=== PATIENT | male | born 1955 | race Caucasian/White ===

== ENCOUNTER 2017-09-11 18:20 | Observation (INO) | payer BC ==
--- NOTE | 2017-09-11 18:29 | EDM.PDOC ---
ED HPI GENERAL MEDICAL PROBLEM - General Stated Complaint: PAIN IN RIGHT SIDE Time Seen by Provider: 09/11/17 18:20 Source of Information: Reports: Patient, Family - Related Data Allergies Allergy/AdvReac Type Severity Reaction Status Date / Time No Known Allergies Allergy Verified 01/12/14 09:57 Home Meds: Home Meds Diltiazem HCl [Diltiazem HCl] 1 tab PO DAILY 01/12/14 [History] Hydrocodone/Acetaminophen [[place] 5-325 Tablet] 1 - 2 each PO Q6HR PRN #30 tablet 01/12/14 [Rx] Multivitamin [Multivitamins] 1 cap PO 01/12/14 [History] Tamsulosin [Tamsulosin 24 Hr] 0.4 mg PO DAILY #10 cap.er 01/12/14 [Rx] Past Medical History - Past Health History Medical/Surgical History: Denies Medical/Surgical History Social & Family History - Alcohol Use Days Per Week of Alcohol Use: 0 - Recreational Drug Use Recreational Drug Use: No Course - Vital Signs Text/Narrative:: Impression: R flank pain Pt was signed out to Dr. Oseguera at 7 pm due to shift changes pending labs, imaging - Orders/Labs/Meds Orders: Active Orders 24 hr Category Date Time Status Abdomen Pelvis wo Cont [CT] Stat Exams 09/11/17 18:26 Ordered BASIC METABOLIC PANEL,BMP [CHEM] Stat Lab 09/11/17 18:26 Ordered CBC WITH AUTO DIFF [HEME] Stat Lab 09/11/17 18:26 Ordered UA W/MICROSCOPIC [URIN] Stat Lab 09/11/17 18:26 Uncollected Departure - Discharge Information Referrals: Gonzalez Camara MD [Primary Care Provider] - - My Orders Last 24 Hours: My Active Orders 09/11/17 18:26 Abdomen Pelvis wo Cont [CT] Stat BASIC METABOLIC PANEL,BMP [CHEM] Stat CBC WITH AUTO DIFF [HEME] Stat UA W/MICROSCOPIC [URIN] Stat - Assessment/Plan Last 24 Hours: My Active Orders 09/11/17 18:26 Abdomen Pelvis wo Cont [CT] Stat BASIC METABOLIC PANEL,BMP [CHEM] Stat CBC WITH AUTO DIFF [HEME] Stat UA W/MICROSCOPIC [URIN] Stat
[2017-09-11] MEDS ORDERED: Ketorolac 30 MG/ML SDV IVPUSH ONE (18:33)
[2017-09-11] MEDS ORDERED: Sodium Chloride 0.9% 10 ML Syringe FLUSH PRN (18:39)
[2017-09-11] MEDS ORDERED: Sodium Chloride 0.9% 1,000 ML IV SCH (19:15)
[2017-09-11] MEDS ORDERED: Ondansetron 4 MG/2 ML SDV IV PRN (20:19)
[2017-09-11] MEDS ORDERED: Tamsulosin 0.4 MG Cap.ER PO ONE (20:19)
[2017-09-11] MEDS ORDERED: Ketorolac 30 MG/ML SDV IVPUSH SCH (20:30)
[2017-09-11] MEDS: Sodium Chloride 0.9% 1,000 ML IV SCH (20:40)
[2017-09-11] MEDS ORDERED: Diltiazem IR 30 MG Tab PO SCH (21:00)
[2017-09-12] MEDS: Ketorolac 30 MG/ML SDV IVPUSH SCH ×3 (01:45→13:04)
[2017-09-12] MEDS: Sodium Chloride 0.9% 1,000 ML IV SCH ×2 (04:40→12:13)
[2017-09-12] MEDS: Aspirin 81 MG Tab.Chew PO SCH (08:51)
--- NOTE | 2017-09-12 09:09 | CT ---
INDICATION: Right flank pain. CT ABDOMEN AND PELVIS WITHOUT CONTRAST: Spiral 1.25-mm axial sections were obtained through the abdomen and pelvis with renal calculus protocol - no contrast - sagittal and coronal reconstructions, 09/11/2017, and compared with 01/12/2014. Total Exam DLP = 621.07 mGy-cm. The lower lung wylie and pleural spaces visualized appeared normal. The heart did not appear grossly enlarged. It may be slightly larger than on the previous examination, however. Multiple low-density lesions are noted in the liver, which were present previously and are compatible with benign cystic structures. The adrenals and spleen were unremarkable. The pancreas was similar to the previous study and within normal limits. No definite retroperitoneal mass was seen. There is a moderately large cyst arising from the upper middle pole lateral cortex of the right kidney, which measures approximately 43 mm and was present previously and appears slightly increased in size, maximum diameter being approximately 38 mm on the previous study. Multiple calculi are noted in both kidneys - renal calcinosis is again noted. There is no evidence of obstructive uropathy on the left. On the right, there is pyelocaliectasis and ureterectasis down to a 5.8-mm calculus in the proximal to mid right ureter which is several centimeters above the pelvic brim. Obstructive uropathy is mild to moderate. There is some fat stranding adjacent to the kidney, suggesting pyelosinus backflow. The appendix appeared normal, visualized on axial images #191 through #217. No evidence of bowel obstruction or free air was seen. Urinary bladder was normal except for suggestion of some minimal thickening of the wall. The prostate is again noted to be enlarged with multiple calcifications. It measured 48 x 41 x 60 mm. There is a left inguinal hernia of small to moderate size, which includes only fat. No other hernias were identified. No gallstones were demonstrated. IMPRESSION: 1. Obstructive uropathy, moderate, due to a 5.8-mm calculus in the proximal to middle portion of the right ureter. 2. Renal calcinosis bilaterally. 3. Moderately large cyst measuring 4.3 cm at the right kidney. 4. Multicystic hepatic disease. 5. Prostatic enlargement with calcification. 6. Slight thickening of the urinary bladder wall. 7. Small to moderate sized left inguinal hernia, including only fat. CT PELVIS: Examination of the pelvis was obtained by CT, as noted above, revealing normal appearing appendix, no evidence of bowel obstruction. The urinary bladder was normal, except for suggestion of a mildly thickened wall, which could be on the basis of cystitis, but should be correlated clinically. It could also represent trabeculation. Small inguinal hernia, including only fat, is noted. Prostatic enlargement is noted. No other organomegaly, mass lesions, or free fluid collections were identified in the pelvis. Report was called to Dr. Oseguera at 1950 hours, 09/11/2017. [facility]
[2017-09-12] MEDS: Diltiazem IR 30 MG Tab PO SCH ×2 (11:20→21:25)
--- NOTE | 2017-09-12 13:58 | HP ---
DATE OF ADMISSION: 09/11/2017 REASON FOR VISIT: Right kidney stone. 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 He was hospitalized last evening by Dr. Oseguera. He presented with acute right flank pain. History of stones remotely in the past dating back to 1991. Four stones at minimum, two sets of intervention including lithotripsy, basketing, and stent. Most recent visit probably 10 years ago. The pain became acute, severe, radiating from the back into the right abdomen. Nausea and vomiting. No particular groin pain. No visible blood by report. MEDICATIONS: Present daily medications include; 1. Calcium. 2. Multivitamin. 3. Senna-S. 4. Aspirin. 5. Diltiazem 30 mg b.i.d. PAST MEDICAL HISTORY: Significant for a previous left eye surgery x4, traumatic eye injury. Cataract was removed, as was an issue. No other operative procedures, hospitalizations, unusual childhood diseases, major injuries, or fractures. 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 One son and one daughter. Three grandchildren and 2 step grandchildren. Nonsmoker. Nil alcohol consumption. No illicit drug use. ALLERGIES: Suspicious for allergy to penicillin. FAMILY HISTORY: Dad, 91 and doing pretty well. Mom at 88 of heart disease. Siblings are in good health. No family history of early heart disease, diabetes mellitus, or inheritable cancers. REVIEW OF SYSTEMS: CONSTITUTIONAL: Feeling reasonably well at the time of my visit. EYES: Sees well, including left eye. EARS: Some difficulty in crowds. OROPHARYNX: Intact dentition. CHEST: No cough, wheeze, or congestion. CARDIOVASCULAR: No chest pain, palpitations, or syncope. GI: Regular predictable stools, no blood in the stools. : Please see HPI. SKIN: No open sores or lesions. ENDOCRINE: No excessive thirst or urination. ALLERGIES: No chronic cough, wheeze, or congestion. PSYCHIATRIC: Mood stable. OBJECTIVE: VITAL SIGNS: Stable. Temperature 37.1, pulse 66, blood pressure 113/76, respirations 16, and O2 saturations 95%. GENERAL: Upright, comfortable, and speaking fluently. HEENT: Funduscopic benign. Bright TMs. Clear nasal discharge. Mouth and oropharynx clear. CHEST: Clear in all lung wylie. HEART: Regular without ectopy or murmur. ABDOMEN: Benign, but tender over right flank and right lateral abdomen. : Normal male genitalia. Inguinal hernia present, left side. EXTREMITIES: Well perfused. SKIN: Without rash. ASSESSMENT: Right renal colic, CT proven, 50 mm. PLAN: Discussed implications, expectations, and concerns. Medications and care. Analgesics on board. Interventional tramadol, oral OxyContin, Flomax on board. Complementary care and well-being. We will watch through the day clinically. /[id number] MG/SAVANNAH RAM
[2017-09-12] MEDS ORDERED: Ketorolac 30 MG/ML SDV IVPUSH PRN (18:54)
--- NOTE | 2017-09-12 22:10 | ER ---
DATE SEEN: 09/11/2017 REASON FOR VISIT: Abdominal pain. HISTORY OF PRESENT ILLNESS: This is a 62-year-old male with left quadrant abdominal pain, flank pain, radiating to the groin, characteristic of his previous kidney stone in 2013, mild nausea but no vomiting symptoms, sudden in onset. CURRENT MEDICATIONS: 1. Aspirin. 2. Diltiazem. 3. Multivitamin. 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 ALLERGIES: Penicillin. PHYSICAL EXAMINATION: GENERAL: He is well hydrated. VITAL SIGNS: Blood pressure is normal, pulse 58, temperature 97.9. ABDOMEN: Soft and benign. MENTAL STATUS: Alert. LABORATORY DATA: White cell count is normal. Electrolytes are within reference range. UA is pending. CT revealed a kidney stone, 5.8 mm in size. IMPRESSION: Ureteric calculi. PLAN: He was given ketorolac IV. Symptoms improved some, but were returning. 1 L of normal saline was given. The patient preferred inpatient treatment for observation and IV fluids. We will admit him under Dr. Soto for observation. TIME SEEN: 2004 hours. /[id number] BLAKE/MODL
[2017-09-13] MEDS ORDERED: Acetaminophen 325 MG Tab ONE (00:55)
[2017-09-13] MEDS ORDERED: Acetaminophen 325 MG Tab PO PRN (01:02)
[2017-09-13] MEDS: oxyCODONE 5 MG Tab PO PRN ×2 (05:35→11:36)
[2017-09-13] MEDS: Diltiazem IR 30 MG Tab PO SCH (08:39)
[2017-09-13] MEDS: Aspirin 81 MG Tab.Chew PO SCH (08:39)
[2017-09-13] MEDS ORDERED: Tamsulosin 0.4 MG Cap.ER PO SCH (09:00)
--- NOTE | 2017-09-13 09:56 | PN ---
DATE SEEN: 09/12/2017 TIME: 1800 hours. Benjamin Berumen is a 62-year-old male, admitted with right renal colic. 5+ mm stone, midportion, right ureter. He had a comfortable day. Last injection about 1300 hours. We will observe overnight, complementary care and well-being. Continue Flomax. If all goes well, discharge in the morning. Pain pills, antiemetics, and Flomax. The patient in agreement. Dr. Oseguera will assume care. /[id number] MG/SAVANNAH
--- NOTE | 2017-09-13 10:32 | DISCH ---
DISCHARGE DATE: 09/13/2017 TRANSFER DATE: 09/13/2017. REASON FOR ADMISSION: Ureteric calculi. DISCHARGE DIAGNOSIS: Ureteric calculi. CONSULTATIONS: Urology on the phone. BRIEF HISTORY: A 62-year-old male with known history of kidney stones, presented with the ureteric calculi on the left 5.8 mm. IV fluids, ketorolac, Flomax have not been helpful. He still has the stone and I consulted with Urology at the [facility] and he is sent over there to further management. I spent more than 35 minutes in arranging the discharge. /[id number] BLAKE/SAVANNAH
--- NOTE | 2017-09-13 10:32 | PN ---
DATE SEEN: 09/13/2017 CHIEF COMPLAINT: Flank pain. HISTORY OF PRESENT ILLNESS: This is a 62-year-old, admitted 2 nights ago for pain thought to be due to kidney stones. He is getting IV fluids, but this morning he complained of mild headache and also pain in the same flank where he had the kidney stone. He denies fever or chills. PAST MEDICAL HISTORY: Ureteric calculi, multiple kidney stones. ALLERGIES: Penicillin. PHYSICAL EXAMINATION: GENERAL: Sick appearing, nontoxic. VITAL SIGNS: Blood pressure is normal, pulse is 61, temperature 98.0. ABDOMEN: Soft. ENT: Negative. MENTAL STATUS: Normal affect. LABORATORY DATA: No new labs this morning. From yesterday, his creatinine was up to 1.5. IMAGING: X-ray of the KUB was done today. IMPRESSION: 1. Ureteric calculi. 2. Mild renal failure. PLAN: I talked to Urology at [facility]. They looked at the images on our PACS system. They believe, he might benefit from procedure. I will send him to the hospitalist service for admission and consultation with Urology. /[id number] BLAKE/SAVANNAH
--- NOTE | 2017-09-13 10:57 | CR ---
INDICATION: Right flank pain. ABDOMEN: Two supine images of the abdomen were obtained, 09/13/2017, and compared with CT of 09/11/2017. At the level of L4, just below the right lateral aspect of the transverse process of L4, there is a calcific density which is essentially unchanged in position or only very minimally more distally located, which measures approximately 6 mm and is compatible with the calcific density in the ureter on the right, seen on CT scan of 09/11/2017. Multiple calculi are noted overlying the kidneys additionally. The pattern of gas and feces is fairly nonspecific. IMPRESSION: Little, if any, distal movement of the obstructing right ureteral calculus is noted. It is almost identical in position to the CT scan of 2017. It measures approximately 6 mm. MTDD
== END 2017-09-13 12:23 ==
LOC: FB.ED 18:20 → FB.MS 20:22
PROVIDERS: ADMIT Family Medicine; ATTEND Family Medicine
DX: N20.1 Calculus of ureter (principal); N19 Unspecified kidney failure; Z87.442 Personal history of urinary calculi; Z79.82 Long term (current) use of aspirin; Z79.899 Other long term (current) drug therapy; Z98.890 Other specified postprocedural states; Z88.0 Allergy status to penicillin
CPT/HCPCS: 36415; 74018; 74176; 80048; 81001; 85025; 96361; 96374; 96376; 99285; A9270; G0378; J1885; J7040; J7050; J7030